=== PATIENT | male | born 1950 | race Caucasian/White ===

== ENCOUNTER 2017-03-13 16:03 | Emergency (ER) | payer MEDICARE, OTHER ==
[~2017-03-13] VITALS: Ht 175.3 cm; Wt 204.1 kg
[~2017-03-13 16:03] MED LIST: NOVOLOG100 UNIT/2; SYMAX PO; TRICOR200 MG PO; Z AMLODIPINE ATO PO; Z.0.CARISOPRODOL350 PO; Z.0.FLOMAX0.4 MG PO; Z.0.FUROSEMIDE40 MG PO; Z.0.HUMULIN N100 UNI; Z.0.KLOR-CON M2020 M PO; Z.0.PLAVIX75 MG PO; Z.0.PRAVACHOL80 MG PO; Z.1.ATENOLOL-CHLOR1 PO
--- NOTE | 2017-03-13 18:56 | Diagnostic Imaging Report ---
PROCEDURE: Frontal and lateral views of the chest. COMPARISON: Chest x-ray 06/09/2011. INDICATIONS: LOW BLOOD PRESSURE FINDINGS: Lines/tubes: Left-sided pacemaker with one. Lungs: The lungs are well inflated and clear. There is no evidence of pneumonia or pulmonary edema. Pleura: There is no pleural effusion or pneumothorax. Heart and mediastinum: The heart and the mediastinum are normal. Bones: No acute bony abnormality. IMPRESSION: No acute cardiopulmonary disease. Dictated by: David Grover M.D. on 03/13/2017 at 19:05 Electronically approved by: David Grover M.D. on 03/13/2017 at 19:05
[2017-03-13 19:11] LABS: BASOPHILS % 0.4 % (0.0-1.0); EOSINOPHILS # (AUTO) 0.1 (0.0-0.4); EOSINOPHILS % 1.1 % (0.0-6.0); HEMOGLOBIN 10.4 g/dL (14.0-18.0); LYMPHOCYTES # (AUTO) 0.9 (1.0-3.2); LYMPHOCYTES % 16.2 % (18.0-39.1); MEAN CORPUSCULAR HEMOGLOBIN 26.9 pg (28-32); MEAN CORPUSCULAR HGB CONC 29.7 g/dL (31-35); MEAN CORPUSCULAR VOLUME 90.7 fL (81-99); MONOCYTES # (AUTO) 0.6 (0.2-0.8); MONOCYTES % 11.5 % (4.4-11.3); NEUTROPHILS # (AUTO) 3.9 (2.1-6.9); NEUTROPHILS % 70.3 % (38.7-80.0); PLATELET COUNT 218 x10e3/uL (140-360); RED BLOOD COUNT 3.86 x10e6/uL (4.3-5.7); RED CELL DISTRIBUTION WIDTH 15.6 % (11.7-14.4)
[2017-03-13 19:20] LABS: INR 1.08; PROTHROMBIN TIME 14.6 seconds (11.9-14.5)
[2017-03-13 19:21] LABS: PARTIAL THROMBOPLASTIN TIME 29.8 seconds (23.8-35.5)
[2017-03-13 19:32] LABS: ALBUMIN 3.1 g/dL (3.5-5.0); ALBUMIN/GLOBULIN RATIO 0.8 (0.8-2.0); CALCIUM 8.9 mg/dL (8.4-10.2); CREATININE, SERUM 4.17 mg/dL (0.72-1.25)
[2017-03-14 00:25] VITALS: BP 114/65
== END 2017-03-14 01:53 | disposition home or self-care (01) ==
LOC: ER 16:10
DX: I95.89 Other hypotension (principal); R53.1 Weakness; I12.0 Hypertensive chronic kidney disease with stage 5 chronic kidney disease or end stage renal disease; N18.6 End stage renal disease; Z99.2 Dependence on renal dialysis; G62.9 Polyneuropathy, unspecified; Z95.5 Presence of coronary angioplasty implant and graft; Z95.810 Presence of automatic (implantable) cardiac defibrillator
CPT/HCPCS: 36415; 71046; 80053; 82550; 82553; 83880; 84484; 85025; 85610; 85730; 87400; 93005; 99284